=== PATIENT | female | born 1950 | race Caucasian/White ===

== ENCOUNTER 2025-05-09 14:19 | Observation (INO) ==
--- NOTE | 2025-05-09 15:08 | XRay Report ---
XR chest 1V portable CLINICAL HISTORY: Sepsis COMPARISON STUDY: None FINDINGS: There is moderate cardiomegaly without pulmonary vascular congestion. There are mitral valv ular calcifications. No consolidation or pleural effusion. No pneumothorax. IMPRESSION: No acute findings. ACT 112: Negative or not required by law. Electronically signed by: Lambert Sheehan M.D. 05/09/2025 3:07 PM
[2025-05-09 15:20] LABS: Hematocrit (blood only) 26.0 % (37.0-47.0); Hemoglobin 8.7 g/dl (12.0-16.0); Immature Granulocytes # (auto) 0.08 K/uL (0.01-0.20); Immature Granulocytes % (auto) 1.0 %; Mean Corpuscular Hemoglobin 27.6 pg (25.0-34.0); Mean Corpuscular Volume 82.5 fL (80.0-100.0); Platelet Count 267 K/uL (130-400); RDW Standard Deviation 44.2 fL (36.4-46.3); Red Blood Count 3.15 M/uL (4.20-5.40); White Blood Count 7.63 K/ul (4.8-10.8)
[2025-05-09 15:45] LABS: Alanine Aminotransferase 17.0 U/L (7-52); Albumin Globulin Ratio 0.8 (0.9-2); Alkaline Phosphatase 72.0 U/L (34-104); Anion Gap 8.0 (3-11); Bilirubin,Total 0.4 mg/dl (0.2-1.0); Blood Urea Nitrogen 27.0 mg/dl (6-23); Calcium 9.1 mg/dl (8.6-10.3); Carbon Dioxide 23.0 mmol/L (21-32); Chloride 97.0 mmol/L (98-107); Creatinine Clr Calc Pharmacy 31.5 ml/min; Globulin 3.8 gm/dl (2.5-4.0); Glucose 137.0 mg/dl (70-99(Fasting)); Magnesium 1.8 mg/dl (1.7-2.4); Potassium 4.3 mmol/L (3.5-5.1); Sodium 128.0 mmol/L (136-145); Total Protein 7.0 gm/dl (6.0-8.3)
[2025-05-09 15:50] LABS: INR 1.2 (0.9-1.1); Partial Thromboplastin Time 36 Seconds (21-31); Prothrombin Time 13.1 Seconds (9.0-12.0)
--- NOTE | 2025-05-09 16:17 | Emergency Department Note ---
Impression & Plan Acute confusion, Acute UTI (urinary tract infection) ED Provider Note HISTORY OF PRESENT ILLNESS: Patient is a 75-year-old female presenting with fever. History was obtained from nurse at [facility]. They report that the patient has had a fever for the last 3 days. Her fevers been up to 101. She reportedly has been having confusion and altered mental status. She was given a one-time dose of Rocephin last night. They are unsure of what her source of infection is at this point. She reportedly had a urinalysis pending upon transport to the ER. She was also reportedly complaining of abdominal pain at her side and an ultrasound was reported as negative for any acute abnormality. Patient denies any complaints on arrival to the emergency department. She states that she was sent because they think she had a urine infection. ROS: as above PHYSICAL EXAM: Constitutional: Patient appears in no acute distress. HENT: Head: Normocephalic and atraumatic. Eyes: EOMI, PERRL Mouth/Throat: Mucous membranes dry. Lips are chapped. Neck: Trachea midline. Neck supple. Cardiovascular: RRR, No murmurs, rubs or gallops. Intact distal pulses. Pulmonary/Chest: No respiratory distress. Breath sounds clear and equal bilaterally. No wheezes or rales. Abdominal: Abdomen soft, no tenderness, rebound or guarding. Musculoskeletal: No edema, tenderness or deformity noted. Skin: Warm and dry. No rash, erythema, pallor or cyanosis Neurological: Alert and keenly responsive. CN II-XII grossly intact, moving all extremities equally and fully. MDM: - Vitals signs showed fever, tachypnea and hypotension. - History obtained via nurse at [facility], given patient's confusion. History as above. - Chronic conditions affecting care: HTN - Differential diagnoses include, but are not limited to: pneumonia; viral syndrome; UTI; electrolyte abnormality; sepsis - Order placed for continuous cardiac monitoring. At this time, monitor showed rate of 110 bpm with normal sinus rhythm, per my interpretation. - External medical records reviewed. - EKG image interpreted by myself showed normal sinus rhythm. Rate 78 bpm. QT 398. No acute ischemic changes. - Laboratory workup interpreted by myself showed normal WBC; chronic anemia (Hgb 8.7); elevated INR (1.2); chronic hyponatremia (Na 128); baseline CKD (Cr 1.63); normal troponin; normal procalcitonin; normal lactate - Blood cultures obtained - UA obtained via straight cath as indicative of infection. - CXR image read by myself is new for pneumonia, per my interpretation. - Patient given 1g IV panel for fever in the emergency department. Given 2 L normal saline in the ER. Patient sepsis fluid volume calculation based on ideal body weight is 1772.70 mL - Given 2g IV rocephin for antibiotic therapy. - Discussion was had with caser about patient's case and need for admission - Hospitalist consulted for admission - Patient admitted to [facility] for further evaluation and management. ASSESSMENT AND PLAN: Diagnosis: Acute confusion; acute UTI Plan: Admit Past Med/Surg History Problem List (Updated 05/09/25 @ 17:21 by Brooklynn Christianson MD) Acute UTI (urinary tract infection) (Acute) Acute confusion (Acute) Social History Feels Safe at Home: Yes Allergies Allergies Allergy/AdvReac Type Severity Reaction Status Date / Time Penicillins Allergy Rash Verified 05/09/25 17:05 Results & Data (ED) Vital Signs Vital Signs - 24 hr 05/09/25 14:15 05/09/25 14:48 05/09/25 15:03 Temperature 39.2 C H Temperature Source Oral Pulse Rate 80 83 Pulse Rate [Apical] Pulse Rate from SpO2 Sensor Pulse Rhythm [Apical] Pulse Strength Normal Pulse Strength [Apical] Respiratory Rate 26 H Respiratory Effort / Characteristics Non-Labored Spontaneous Respiratory Depth Normal Respiratory Pattern Regular Blood Pressure 92/58 L Blood Pressure [Right Arm] Blood Pressure Mean 69 Blood Pressure Mean [Right Arm] Blood Pressure Position [Right Arm] Pulse Oximetry 99 96 Oxygen Delivery Method Room Air Nasal Cannula Oxygen Flow Rate 2 Sepsis Recent Fever Within 48 Hours Yes Sepsis New/Unexplained Change in Mental Status No Sepsis Action Taken by Nursing Physician Notified 05/09/25 15:04 05/09/25 15:10 05/09/25 16:00 Temperature 39.2 C H Temperature Source Oral Pulse Rate 81 Pulse Rate [Apical] 78 Pulse Rate from SpO2 Sensor Pulse Rhythm [Apical] Pulse Strength Pulse Strength [Apical] Normal Respiratory Rate 18 23 Respiratory Effort / Characteristics Respiratory Depth Respiratory Pattern Blood Pressure 117/60 Blood Pressure [Right Arm] 92/58 L Blood Pressure Mean 70 Blood Pressure Mean [Right Arm] 69 Blood Pressure Position [Right Arm] Pulse Oximetry 97 96 99 Oxygen Delivery Method Nasal Cannula Nasal Cannula Oxygen Flow Rate 2 2 Sepsis Recent Fever Within 48 Hours Sepsis New/Unexplained Change in Mental Status Sepsis Action Taken by Nursing 05/09/25 16:18 05/09/25 17:00 05/09/25 17:17 Temperature Temperature Source Pulse Rate 81 Pulse Rate [Apical] 118 H Pulse Rate from SpO2 Sensor 81 Pulse Rhythm [Apical] Regular Pulse Strength Pulse Strength [Apical] Normal Respiratory Rate 25 H 20 Respiratory Effort / Characteristics Non-Labored Spontaneous Respiratory Depth Normal Respiratory Pattern Regular Blood Pressure 110/57 L Blood Pressure [Right Arm] 96/57 L Blood Pressure Mean 71 Blood Pressure Mean [Right Arm] 70 Blood Pressure Position [Right Arm] Lying Pulse Oximetry 98 100 Oxygen Delivery Method Nasal Cannula Oxygen Flow Rate 2 Sepsis Recent Fever Within 48 Hours Sepsis New/Unexplained Change in Mental Status Sepsis Action Taken by Nursing Laboratory Data 05/09/25 14:50 05/09/25 14:50 Lab Results 05/09/25 05/09/25 Range/Units 14:50 15:53 WBC 7.63 (4.8-10.8) K/ul RBC 3.15 L (4.20-5.40) M/uL Hgb 8.7 L (12.0-16.0) g/dl Hct 26.0 L (37.0-47.0) % MCV 82.5 (80.0-100.0) fL MCH 27.6 (25.0-34.0) pg MCHC 33.5 (32.0-36.0) g/dL RDW Std Deviation 44.2 (36.4-46.3) fL RDW Coeff of Aidan 14.6 H (11.5-14.5) % Plt Count 267 (130-400) K/uL MPV 8.6 L (9.4-12.4) fL Immature Gran % (Auto) 1.0 % Neut % (Auto) 74.5 % Lymph % (Auto) 11.1 % [place] % (Auto) 12.8 % Eos % (Auto) 0.3 % Baso % (Auto) 0.3 % Neut # (Auto) 5.68 (1.40-6.50) K/uL Lymph # (Auto) 0.85 L (1.20-3.40) K/uL [place] # (Auto) 0.98 H (0.11-0.59) K/uL Eos # (Auto) 0.02 (0.00-0.50) K/uL Baso # (Auto) 0.02 (0.00-0.20) K/uL Immature Gran # (Auto) 0.08 (0.01-0.20) K/uL PT 13.1 H (9.0-12.0) Seconds INR 1.2 H (0.9-1.1) APTT 36 H (21-31) Seconds PTT Ratio 1.3 Sodium 128 L (136-145) mmol/L Potassium 4.3 (3.5-5.1) mmol/L Chloride 97 L (98-107) mmol/L Carbon Dioxide 23 (21-32) mmol/L Anion Gap 8 (3-11) BUN 27 H (6-23) mg/dl Creatinine 1.63 H (0.6-1.2) mg/dl Est Cr Clr Drug Dosing 31.5 ml/min eGFR 32.48 BUN/Creatinine Ratio 16.6 (10-20) Glucose 137 H (70-99(Fasting)) mg/dl Lactate 1.5 (0.4-2.0) mmol/L Calcium 9.1 (8.6-10.3) mg/dl Magnesium 1.8 (1.7-2.4) mg/dl Total Bilirubin 0.4 (0.2-1.0) mg/dl AST 27 (13-39) U/L ALT 17 (7-52) U/L Alkaline Phosphatase 72 (34-104) U/L Troponin I High Sens 13.4 (0-14) pg/ml Total Protein 7.0 (6.0-8.3) gm/dl Albumin 3.2 L (3.4-5.0) gm/dl Globulin 3.8 (2.5-4.0) gm/dl Albumin/Globulin Ratio 0.8 L (0.9-2) Procalcitonin 0.18 (0-0.5) ng/ml Urine Color Dark Yellow Urine Appearance Turbid A (Clear) Urine pH 6.0 (4.5-7.5) Ur Specific [place] 1.016 (1.000-1.030) Urine Protein 3+ H (Negative) Urine Glucose (UA) Negative (Negative) Urine Ketones Trace H (Negative) Urine Blood 3+ H (Negative) Urine Nitrite Negative (Negative) Urine Bilirubin Negative (Negative) Urine Urobilinogen Negative (Negative) Ur Leukocyte Esterase 3+ H (Negative) Urine WBC (Auto) >50 H (0-5) /hpf Urine RBC (Auto) 6-10 H (0-2) /hpf U Hyaline Cast (Auto) 0-2 (0-2) /lpf U Epithel Cells (Auto) 11-20 H (0-2) /hpf Urine Bacteria (Auto) 1+ H (None Seen) Urine Comment Administered Medications Discontinued Medications Sodium Chloride (Nss) 1,000 mls @ 999 mls/hr IV .Q1H1M ONE Stop: 05/09/25 17:04 Last Admin: 05/09/25 16:28 Dose: 999 mls/hr Documented By: LANDRY Sodium Chloride (Nss) 1,000 mls @ 999 mls/hr IV .Q1H1M ONE Stop: 05/09/25 17:17 Last Admin: 05/09/25 16:28 Dose: 999 mls/hr Documented By: LANDRY Acetaminophen (Ofirmev) 1,000 mg in 100 mls @ 400 mls/hr IV NOW STA Stop: 05/09/25 16:31 Last Admin: 05/09/25 16:26 Dose: 400 mls/hr Documented By: LANDRY Ceftriaxone Sodium (Rocephin) 2,000 mg in 50 mls @ 100 mls/hr IV NOW STA Stop: 05/09/25 17:19 Last Admin: 05/09/25 17:08 Dose: 100 mls/hr Documented By: LANDRY Imaging Data Radiologist's Impression: Chest X-Ray 05/09/25 14:42 XR chest 1V portable CLINICAL HISTORY: Sepsis COMPARISON STUDY: None FINDINGS: There is moderate cardiomegaly without pulmonary vascular congestion. There are mitral valvular calcifications. No consolidation or pleural effusion. No pneumothorax. IMPRESSION: No acute findings. ACT 112: Negative or not required by law. Electronically signed by: Lambert Sheehan M.D. 05/09/2025 3:07 PM Discharge Plan Visit Data Chief Complaint: Urinary Symptoms ED Provider: Brooklynn Christianson Discharge Problem: Acute confusion, Acute UTI (urinary tract infection) Condition: Fair Forms Stand Alone Forms: My [facility] Referrals Referrals: Fercho Lugo [Primary Care Provider] -
[2025-05-09] MEDS: ACETAMINOPHEN 1,000 MG/100 ML VIAL IV STA (16:26)
[2025-05-09] MEDS: SODIUM CHLORIDE 0.9% 1,000 ML IV ONE ×2 (16:28)
[2025-05-09 16:33] LABS: Appearance Urine Turbid (Clear); Bacteria Urine Automated 1+ (None Seen); Cast Urine Automated 0-2 /lpf (0-2); Glucose Urine UA Negative (Negative); WBC Urine Automated >50 /hpf (0-5)
[2025-05-09] MEDS: cefTRIAXone SODIUM 2,000 MG/50 ML BAG IV STA (17:08)
[2025-05-09] MEDS ORDERED: ONDANSETRON INJ 2 MG/ML 2 ML VIAL IV PRN (17:44)
[2025-05-09] MEDS ORDERED: ACETAMINOPHEN 325 MG TAB PO PRN (17:44)
[2025-05-09] MEDS ORDERED: cefTRIAXone SODIUM 1,000 MG/50 ML BAG IV SCH (18:00)
--- NOTE | 2025-05-09 18:05 | History & Physical Report ---
Date of Service May 09, 2025 Assessment & Plan (1) Acute UTI (urinary tract infection): Plan: -f/u urine C&S -rocephin -IVF (2) Acute confusion: Plan: -metabolic encephalopathy 2nd to UTI Plan PT/OT evaluation D/C planning to return to [facility] in 48hrs without fever History of Present Illness Chief Complaint: Confusion, fever Primary Care Provider: [facility] Pt is a 75 y/o female who presents from [facility] with 3 days of fever and acute confusion. Pt has history of UTIs in the past and was given 1 dose of Rocephin prior to being sent to the ER. In the ER her UA was grossly positive for UTI. She also was hypotensive with SBP in the 90s. Pt was given a rocephin, IVF and will be admitted for further treatment of UTI with metabolic encephalopathy. Allergies Allergy/AdvReac Type Severity Reaction Status Date / Time Penicillins Allergy Rash Verified 05/09/25 17:05 Past Med/Surg History Problem List (Updated 05/09/25 @ 17:21 by Brooklynn Christianson MD) Acute UTI (urinary tract infection) (Acute) Acute confusion (Acute) Social History Feels Safe at Home: Yes Review of Systems Review of Systems: CONST:fever HENT: Negative for neck pain/stiffness, headache, congestion, sore throat, swelling. EYES: Negative for discharge/pain or vision changes. RESP: Negative for cough/hemoptysis and shortness of breath. CV: Negative chest pain, difficulty breathing, palpitations. ABD: Negative pain, nausea, vomiting. : Negative increase frequency, dysuria, blood in urine or stool. MUSC: Negative for muscle aches, edema. SKIN: Negative rash, lesions/sores. NEURO: confusion. Physical Exam Physical Exam: GENERAL APPEARANCE NAD, activity normal for age, well developed/ well nourished, no cyanosis, pallor, or diaphoresis. EYES lids/conjunctiva normal. EARS/NOSE/THROAT Mucous membranes moist, nares normal, lips/teeth normal uvula midline without oral pharyngeal erythema, exudate or swelling TMs normal bilaterally. No lymphangitis/lymphedema. HEAD/NECK normocephalic atraumatic, no facial trauma, neck is supple. RESPIRATORY respiratory effort normal, speaks in full sentences, no tripod position, no accessory muscle use. Lungs clear to auscultation without rhonchi, wheezes, rales CARDIAC Regular rate and rhythm, no edema. ABDOMINAL Soft, ND/NT. No evidence of fluid wave. No pulsatile masses on exam, rebound tenderness, Choi sign or pain over Mcburney's point. MUSCLES/EXTREMITIES No abnormal range of motion, no swelling. SKIN Warm, pink and dry. No rashes, dermatoses, petechiae or lesions. NEUROLOGICAL Speech is clear and appropriate. Normal level of consciousness. Gait and coordination are normal. 5/5 strength in all extremities. PSYCH Normal mood and affect. Judgement/competence is appropriate Results & Data Results & Data Vital Signs (Past 12 Hours) Vital Signs Temp Pulse Pulse Resp BP BP Pulse Ox 05/09/25 17:17 118 H 20 96/57 L 100 05/09/25 17:00 110/57 L 05/09/25 16:18 81 25 H 98 05/09/25 16:00 81 23 117/60 99 05/09/25 15:10 96 05/09/25 15:04 39.2 C H 78 18 92/58 L 97 05/09/25 15:03 96 05/09/25 14:48 83 05/09/25 14:15 39.2 C H 80 26 H 92/58 L 99 O2 Del Method O2 Flow Rate 05/09/25 17:17 Nasal Cannula 2 05/09/25 17:00 05/09/25 16:18 05/09/25 16:00 05/09/25 15:10 Nasal Cannula 2 05/09/25 15:04 Nasal Cannula 2 05/09/25 15:03 Nasal Cannula 2 05/09/25 14:48 05/09/25 14:15 Room Air PG Care Time/CCT Total # of Minutes Spent Total Time Spent with Patient: Total time spent is greater than 50% in coordination of care (as documented) at patient's floor/unit and/or counseling patient: Coding Level of Care Code 96424 INT INP/OBS CARE 2/55MIN Diagnoses Acute UTI (urinary tract infection) N39.0 Acute confusion R41.0
[2025-05-09] MEDS: SODIUM CHLORIDE 0.9% 1,000 ML IV SCH (19:28)
[2025-05-09] MEDS: HEPARIN SOD 5,000 UNIT/0.5 ML VIAL SQ SCH (22:32)
--- NOTE | 2025-05-09 22:32 | Electrocardiogram Report ---
Test Reason : Blood Pressure : */* mmHG Vent. Rate : 78 BPM Atrial Rate : 78 BPM P-R Int : 164 ms QRS Dur : 94 ms QT Int : 398 ms P-R-T Axes : -20 -17 22 degrees QTcB Int : 453 ms Normal sinus rhythm Poor R wave progression, consider anterior [place] vs. lead placement vs. LVH No previous ECGs available Confirmed by Rik Nesbitt ([id number]) on 05/09/2025 10:31:41 PM Referred By: [facility] Confirmed By: Rik Nesbitt
[2025-05-09] MEDS ORDERED: GLUCAGON FOR INJ 1 MG VIAL SQ PRN (23:13)
[2025-05-09] MEDS ORDERED: DEXTROSE 50% 50 ML SYRINGE IV PRN (23:13)
[2025-05-09] MEDS ORDERED: GLUCOSE 40% GEL 15 GM TUBE PO PRN (23:13)
[2025-05-09] MEDS ORDERED: GLUCOSE 10 TAB/TUBE PO PRN (23:13)
[2025-05-09] MEDS ORDERED: CARBOHYDRATES FOR HYPOGLYCEMIA PO PRN (23:13)
[2025-05-10 07:50] LABS: Hematocrit (blood only) 25.5 % (37.0-47.0); Hemoglobin 8.2 g/dl (12.0-16.0); Mean Corpuscular Hemoglobin 26.7 pg (25.0-34.0); Mean Corpuscular Volume 83.1 fL (80.0-100.0); Platelet Count 237 K/uL (130-400); RDW Standard Deviation 43.8 fL (36.4-46.3); Red Blood Count 3.07 M/uL (4.20-5.40); White Blood Count 7.10 K/ul (4.8-10.8)
[2025-05-10] MEDS ORDERED: HYDROCORTISONE 1% TOP PRN (08:14)
[2025-05-10] MEDS ORDERED: MAGNESIUM HYDROXIDE SUSP 30 ML UDC PO PRN (08:14)
[2025-05-10] MEDS ORDERED: GLUCAGON 1 MG IM PRN (08:14)
[2025-05-10] MEDS ORDERED: METRONIDAZOLE 0.75% TOP PRN (08:14)
[2025-05-10] MEDS ORDERED: GLUCOSE 40% GEL 15 GM TUBE PO PRN (08:14)
[2025-05-10] MEDS ORDERED: SOD PHOSPHATE/SOD BIPHOSPHATE ENEMA 132 ML BTL PR PRN (08:14)
[2025-05-10] MEDS ORDERED: ACETAMINOPHEN 325 MG TAB PO PRN (08:14)
[2025-05-10 08:18] LABS: Anion Gap 5.0 (3-11); Blood Urea Nitrogen 19.0 mg/dl (6-23); Calcium 8.5 mg/dl (8.6-10.3); Carbon Dioxide 22.0 mmol/L (21-32); Chloride 102.0 mmol/L (98-107); Creatinine Clr Calc Pharmacy 46.2 ml/min; Glucose 145.0 mg/dl (70-99(Fasting)); Potassium 3.9 mmol/L (3.5-5.1); Sodium 129.0 mmol/L (136-145)
[2025-05-10] MEDS ORDERED: CALCIUM CARBONATE 500 MG CHEWABLE TAB PO PRN (08:27)
[2025-05-10] MEDS ORDERED: LACTASE 3000 UNIT TAB PO PRN (08:28)
[2025-05-10] MEDS ORDERED: HYDROCORTISONE 1% CRM 30 GM TUBE EXT PRN (08:37)
[2025-05-10] MEDS: SENNA 8.6 MG TAB PO SCH (08:59)
[2025-05-10] MEDS: POLYETHYLENE (MIRALAX) 17 GM PACK PO SCH (08:59)
[2025-05-10] MEDS: clonazePAM 0.5 MG TAB PO SCH (09:00)
[2025-05-10] MEDS ORDERED: CEFTRIAXONE 1 GM IV SCH (09:00)
[2025-05-10] MEDS: INSULIN ASPART PER UNIT CHARGE SC SCH (09:01)
[2025-05-10] MEDS: DIVALPROEX DELAY RELEASE 250 MG TABEC PO SCH (09:05)
[2025-05-10] MEDS: FLUTICASONE/VILANTEROL 200/25MCG 14 PUFFS/INHALER INH SCH (09:06)
[2025-05-10] MEDS: MULTIVITAMIN TAB PO SCH (09:07)
[2025-05-10] MEDS: LIOTHYRONINE SODIUM 5 MCG TAB PO SCH (09:07)
[2025-05-10] MEDS: CHOLECALCIFEROL 125 MCG (5,000 UNITS) TAB PO SCH (09:07)
[2025-05-10] MEDS: PERPHENAZINE 4 MG TAB PO SCH ×2 (09:07→21:44)
[2025-05-10] MEDS: LEVOTHYROXINE SODIUM 150 MCG TABLET PO SCH (09:08)
[2025-05-10] MEDS: METOPROLOL SUCC 50MG EXT REL TAB PO SCH (09:09)
[2025-05-10] MEDS: SERTRALINE HCL 50 MG TABLET PO SCH ×2 (09:09)
[2025-05-10] MEDS: FERROUS SULFATE 325 MG TAB PO SCH (09:10)
[2025-05-10] MEDS: ASPIRIN 81 MG ECTAB PO SCH (09:10)
[2025-05-10] MEDS: ARIPiprazole 5 MG TAB PO SCH (09:10)
[2025-05-10] MEDS: AMANTADINE HCL 100 MG CAPSULE PO SCH (09:42)
--- NOTE | 2025-05-10 10:42 | Hospitalist Progress Note ---
Date of Service May 10, 2025 Assessment & Plan (1) Acute UTI (urinary tract infection): Plan: -f/u urine C&S -rocephin -IVF (2) Acute confusion: Plan: -metabolic encephalopathy 2nd to UTI (3) Diabetes: Plan: -RISS (4) HTN (hypertension): Plan: -amlodipine -metoprolol (5) Hypothyroidism: Plan: -levothyroxine Plan PT/OT evaluation D/C planning to return to [facility] in 48hrs without fever Admission and Anticipated Discharge Date Admission Date: May 09, 2025 Review of Systems Review of Systems: CONST:fever HENT: Negative for neck pain/stiffness, headache, congestion, sore throat, swelling. EYES: Negative for discharge/pain or vision changes. RESP: Negative for cough/hemoptysis and shortness of breath. CV: Negative chest pain, difficulty breathing, palpitations. ABD: Negative pain, nausea, vomiting. : Negative increase frequency, dysuria, blood in urine or stool. MUSC: Negative for muscle aches, edema. SKIN: Negative rash, lesions/sores. NEURO: confusion. Physical Exam Physical Exam: GENERAL APPEARANCE NAD, activity normal for age, well developed/ well nourished, no cyanosis, pallor, or diaphoresis. EYES lids/conjunctiva normal. EARS/NOSE/THROAT Mucous membranes moist, nares normal, lips/teeth normal uvula midline without oral pharyngeal erythema, exudate or swelling TMs normal bilaterally. No lymphangitis/lymphedema. HEAD/NECK normocephalic atraumatic, no facial trauma, neck is supple. RESPIRATORY respiratory effort normal, speaks in full sentences, no tripod position, no accessory muscle use. Lungs clear to auscultation without rhonchi, wheezes, rales CARDIAC Regular rate and rhythm, no edema. ABDOMINAL Soft, ND/NT. No evidence of fluid wave. No pulsatile masses on exam, rebound tenderness, Choi sign or pain over Mcburney's point. MUSCLES/EXTREMITIES No abnormal range of motion, no swelling. SKIN Warm, pink and dry. No rashes, dermatoses, petechiae or lesions. NEUROLOGICAL Speech is clear and appropriate. Normal level of consciousness. Gait and coordination are normal. 5/5 strength in all extremities. PSYCH Normal mood and affect. Judgement/competence is appropriate Results & Data Results & Data Vital Signs (Past 12 Hours) Vital Signs Temp Pulse Resp BP Pulse Ox O2 Del Method 05/10/25 06:55 37.4 C 92 H 16 146/61 H 94 Room Air PG Care Time/CCT Total # of Minutes Spent Total Time Spent with Patient: Total time spent is greater than 50% in coordination of care (as documented) at patient's floor/unit and/or counseling patient: Coding Level of Care Code 86466 SUB INP/OBS CARE 2/35MIN Diagnoses Acute UTI (urinary tract infection) N39.0 Acute confusion R41.0 Diabetes E11.9 HTN (hypertension) I10 Hypothyroidism E03.9
[2025-05-10] MEDS: cefTRIAXone SODIUM 2,000 MG/50 ML BAG IV SCH (17:33)
[2025-05-10] MEDS: MELATONIN 3 MG TAB PO SCH (21:44)
[2025-05-10] MEDS: GABAPENTIN 300 MG CAP PO SCH (21:44)
[2025-05-10] MEDS: MIRTAZAPINE TAB 15 MG TAB PO SCH (21:45)
[2025-05-10] MEDS: ATORVASTATIN 20 MG TAB PO SCH (21:45)
[2025-05-10] MEDS: PRAZOSIN HCL 1 MG CAP PO SCH (21:45)
[2025-05-11 07:01] VITALS: BP 131/77; PULSE 81; RESP 16; TEMP 97.9; O2SAT 95
--- NOTE | 2025-05-11 09:40 | Discharge Summary ---
Discharge Summary Date of Service May 11, 2025 Principal Dx & Hospital Course #1 = Principal Diagnosis (1) Acute UTI (urinary tract infection): -f/u urine C&S -rocephin -IVF (2) Acute confusion: -metabolic encephalopathy 2nd to UTI (3) Diabetes: -RISS (4) HTN (hypertension): -amlodipine -metoprolol (5) Hypothyroidism: -levothyroxine Plan PT/OT evaluation D/C planning to return to [facility] in 48hrs without fever Admission HPI Per Admitting Provider Pt is a 75 y/o female who presents from [facility] with 3 days of fever and acute confusion. Pt has history of UTIs in the past and was given 1 dose of Rocephin prior to being sent to the ER. In the ER her UA was grossly positive for UTI. She also was hypotensive with SBP in the 90s. Pt was given a rocephin, IVF and will be admitted for further treatment of UTI with metabolic encephalopathy. Discharge Exam GENERAL APPEARANCE NAD, activity normal for age, well developed/ well nourished, no cyanosis, pallor, or diaphoresis. EYES lids/conjunctiva normal. EARS/NOSE/THROAT Mucous membranes moist, nares normal, lips/teeth normal uvula midline without oral pharyngeal erythema, exudate or swelling TMs normal bilaterally. No lymphangitis/lymphedema. HEAD/NECK normocephalic atraumatic, no facial trauma, neck is supple. RESPIRATORY respiratory effort normal, speaks in full sentences, no tripod position, no accessory muscle use. Lungs clear to auscultation without rhonchi, wheezes, rales CARDIAC Regular rate and rhythm, no edema. ABDOMINAL Soft, ND/NT. No evidence of fluid wave. No pulsatile masses on exam, rebound tenderness, Choi sign or pain over Mcburney's point. MUSCLES/EXTREMITIES No abnormal range of motion, no swelling. SKIN Warm, pink and dry. No rashes, dermatoses, petechiae or lesions. NEUROLOGICAL Speech is clear and appropriate. Normal level of consciousness. Gait and coordination are normal. 5/5 strength in all extremities. PSYCH Normal mood and affect. Judgement/competence is appropriate Discharge Plan Discharge Items Patient Disposition: Home - Self-Care Reason For Visit: UTI, FEVER Discharge Diagnosis: UTI with metabolic encephalopathy Condition on Discharge: Fair Activity: Resume your previous activity Non-emergency contact: Primary Care Provider Call non-emergency contact if: you have any medication questions Follow-up/Referrals: Fercho Lugo [Primary Care Provider] - Diet: Regular Addtl Attending Provider Instructions: Follow up with PMD in 2 weeks Pending Studies at Discharge: No Stand-Alone Forms: [facility] [employer], Smoking Cessation Medications and DC Order Prescriptions: New cefdinir 300 mg capsule 300 mg PO BID 5 Days Qty: 10 0RF Continued amantadine HCl 100 mg tablet 100 mg PO BID sennosides [senna] 8.6 mg Tablet 17.2 mg PO QAM acetaminophen 325 mg Tablet 650 mg PO Q6H MDD 3g/24hr PRN (Reason: Pain/Fever) atorvastatin 20 mg tablet 20 mg PO HS divalproex 250 mg tablet,delayed release (DR/EC) 750 mg PO QAM polyethylene glycol 3350 [Miralax] 17 gram Powder In Packet 17 g PO QAM clonazepam 0.5 mg tablet 0.5 mg PO BID dextrose 40 % Gel 1 ea PO DIRECTED PRN (Reason: Hypoglycemia) Rx Instructions: For glucose less than 60 and/or symptomatic. Must be responsive and able to safely swallow. amlodipine 5 mg tablet 5 mg PO QAM liothyronine [Cytomel] 5 mcg Tablet 10 mcg PO QAM aspirin 81 mg tablet,delayed release (DR/EC) 81 mg PO QAM tramadol 50 mg tablet 50 mg PO Q6H PRN (Reason: Pain) pantoprazole 20 mg tablet,delayed release (DR/EC) 20 mg PO QAM magnesium hydroxide [Milk of Magnesia] 400 mg/5 mL Suspension 2,400 mg PO DAILY PRN (Reason: Constipation) Rx Instructions: Administer if 3 days of no BM lactase [Lactaid Fast Act] 9,000 unit Tablet 9,000 unit PO AC PRN (Reason: Dairy intake) Rx Instructions: administer with first bite of dairy food ropinirole 0.25 mg tablet 0.25 mg PO HS hydrocortisone 1 % cream 1 applic topical Q8H PRN (Reason: Itching) hydrocortisone 1 % cream 1 applic topical Q12H PRN (Reason: Pruritus) bisacodyl [Dulcolax (bisacodyl)] 10 mg Suppository 10 mg MD DAILY PRN (Reason: Constipation) Rx Instructions: If no BM in the evening of the 3rd day ferrous sulfate [FeroSul] 325 mg (65 mg iron) tablet 325 mg PO QAM levothyroxine 150 mcg tablet 150 mcg PO QAM metronidazole 0.75 % cream 1 applic topical DAILY PRN (Reason: Roscea) fluticasone propion-salmeterol 500-50 mcg/dose blister with device 1 inh INHALATION BID perphenazine 4 mg tablet 4 mg PO QAM Fleet Enema 19-7 gram/118 mL Enema 118 ml MD DAILY PRN (Reason: Constipation) Rx Instructions: Administer on the morning of the 4th day of no BM gabapentin 300 mg capsule 300 mg PO HS sertraline 25 mg tablet 25 mg PO QAM Rx Instructions: Take w/ 50mg to equal 75mg by mouth in the morning calcium carbonate 500 mg calcium (1,250 mg) Tablet,Chewable 500 mg PO Q2H PRN (Reason: Indigestion) metoprolol succinate 25 mg Tablet Extended Release 24 Hr 50 mg PO QAM nystatin 100,000 unit/gram Powder 1 applic TOPICAL Q12H PRN (Reason: Skincare) glucagon 1 mg Recon Soln 0 mg IM DIRECTED PRN (Reason: Hypoglycemia) Rx Instructions: Inject 1 application IM every 15 minutes as needed for hypoglycemia blood glucose <60 and symptomatic/unresponsive. multivitamin with minerals Tablet 1 tab PO QAM perphenazine 8 mg tablet 8 mg PO HS fluticasone propionate 50 mcg/actuation spray,suspension 2 spray INTRANASAL QAM sertraline 50 mg tablet 50 mg PO QAM Rx Instructions: Take w/ 25mg to equal 75mg by mouth in the morning cholecalciferol (vitamin D3) 125 mcg (5,000 unit) capsule 5,000 unit PO QAM prazosin 2 mg capsule 2 mg PO HS aripiprazole 5 mg tablet 7.5 mg PO QAM mirtazapine 7.5 mg tablet 7.5 mg PO HS melatonin 5 mg Tablet 5 mg PO HS Tradjenta 5 mg tablet 5 mg PO QAM Discontinued ceftriaxone [Rocephin] 1 gram Recon Soln 1 g IV QAM Rx Instructions: Start Date 05/09/25 - End Date 05/16/25: NSS 100mls/hr Discharge Orders: Discharge Order (Routine); Ordered 05/11/25 Ordered By: Talha Hernandez Admission Data Admit Date/Time: 05/09/25 17:44 Attending Provider: Talha Hernandez Admit Provider: Talha Hernandez Primary Care Provider: Fercho Lugo Other Providers: Talha Hernandez Hospital Stay Data Consultations 05/09/25 17:09 ED Decision to Admit Stat Pending Results Patient Have Any Pending Studies at Discharge: No Discharge Instructions Given to Patient (Per Discharging Provider) Follow up with PMD in 2 weeks Total Time Total Time Spent Total Time Spent (In Minutes): 50 Coding Level of Care Code 23835 INP/OBS DISCH >30 MIN Diagnoses Acute UTI (urinary tract infection) N39.0 Acute confusion R41.0 Diabetes E11.9 HTN (hypertension) I10 Hypothyroidism E03.9
[2025-05-11 10:29] LABS: Hematocrit (blood only) 25.7 % (37.0-47.0); Hemoglobin 8.3 g/dl (12.0-16.0); Mean Corpuscular Hemoglobin 26.6 pg (25.0-34.0); Mean Corpuscular Volume 82.4 fL (80.0-100.0); Platelet Count 245 K/uL (130-400); RDW Standard Deviation 43.2 fL (36.4-46.3); Red Blood Count 3.12 M/uL (4.20-5.40); White Blood Count 7.45 K/ul (4.8-10.8)
[2025-05-11 10:34] LABS: Anion Gap 7.0 (3-11); Blood Urea Nitrogen 14.0 mg/dl (6-23); Calcium 8.8 mg/dl (8.6-10.3); Carbon Dioxide 21.0 mmol/L (21-32); Chloride 104.0 mmol/L (98-107); Creatinine Clr Calc Pharmacy 53.9 ml/min; Glucose 111.0 mg/dl (70-99(Fasting)); Potassium 3.8 mmol/L (3.5-5.1); Sodium 132.0 mmol/L (136-145)
== END 2025-05-11 13:20 | DRG 689 ==
LOC: ED 14:19 → INTOOBSV 17:44 → EDINP 17:44 → 3N 20:38